=== PATIENT | female | born 1980 | race Caucasian/White ===

== ENCOUNTER 2018-08-12 07:15 | Emergency (ER) | payer BC ==
[2018-08-12 07:32] VITALS: BP 132/89
--- NOTE | 2018-08-12 07:49 | UC ---
Skin Complaint HPI - HPI Summary HPI Summary: 37 yo female presents with rash. She tells me that about a week ago she thinks she was bitten by a bug, possibly a tick, to her right posterior upper thigh. Since that time has noticed an enlarging red [place] at the area that is mildly itchy. Yesterday she noticed a red circular rash on her left arm and right upper arm. She mentions that she has been bitten by multiple ticks in the last few months, but has never noticed a rash or had any symptoms. Denies fever, chills, body aches, joint pain, fatigue. - History of Current Complaint Chief Complaint: UCSkin Time Seen by Provider: 08/12/18 07:49 Stated Complaint: TICK BITE RT THIGH Hx Obtained From: Patient Onset/Duration: Gradual Onset Current Severity: None Pain Intensity: 0 - Allergy/Home Medications Allergies/Adverse Reactions: Allergies Allergy/AdvReac Type Severity Reaction Status Date / Time No Known Allergies Allergy Verified 08/12/18 07:32 Home Medications: Home Medications Ethynodiol D-Ethinyl Estradiol [Kelnor ] 1 tab PO 08/12/18 [History] Fluvoxamine (NF) [Luvox (NF)] 100 mg PO 08/12/18 [History] Levothyroxine Sodium [Synthroid] 50 mcg PO 08/12/18 [History] lamoTRIgine [Lamictal] 100 mg PO 08/12/18 [History] PMH/Surg Hx/FS Hx/Imm Hx Endocrine History: Hypothyroidism Psychological History: Bipolar Disorder - Surgical History Surgical History: None - Family History Known Family History: Positive: None - Social History Occupation: Employed Full-time Lives: With Family Alcohol Use: Rare Substance Use Type: None Smoking Status (MU): Never Smoked Tobacco Review of Systems All Other Systems Reviewed And Are Negative: Yes Constitutional: Positive: Negative Skin: Positive: Rash Eyes: Positive: Negative ENT: Positive: Negative Respiratory: Positive: Negative Cardiovascular: Positive: Negative Gastrointestinal: Positive: Negative Neurovascular: Positive: Negative Neurological: Positive: Negative Psychological: Positive: Negative Physical Exam - Summary Physical Exam Summary: GENERAL: NAD. WDWN. No pain distress. SKIN: RIGHT POSTERIOR UPPER THIGH: approx 10.0cm bull's eye rash. No warmth, induration, or streaking. LEFT dorsal forearm 2.5cm oval shaped area of erythema and mild edema with central clearing. RIGHT UPPER ARM: 2.0cm circular erythematous rash with central clearing and mild edema. No open wounds NECK: Supple. Nontender. No lymphadenopathy. CHEST: No accessory muscle use. Breathing comfortably and in no distress. CV: Pulses intact. Cap refill <2seconds NEURO: Alert. PSYCH: Age appropriate behavior. Triage Information Reviewed: Yes Vital Signs: Initial Vital Signs Temp 98.3 F 08/12/18 07:28 Pulse 63 08/12/18 07:28 Resp 18 08/12/18 07:28 BP 132/89 08/12/18 07:28 Pulse Ox 100 08/12/18 07:28 Vital Signs Reviewed: Yes Course/Dx - Course Course Of Treatment: Rashes appear consistent with early disseminated lyme disease. Dx further supported by her history of tick bites over the last few months. Will rx for doxycycline for 3 weeks and have her f/u with her PCP for a recheck - Diagnoses Provider Diagnosis: Lyme disease Discharge - Sign-Out/Discharge Documenting (check all that apply): Patient Departure All imaging exams completed and their final reports reviewed: No Studies - Discharge Plan Condition: Stable Disposition: HOME Prescriptions: DOXYcycline CAP(*) [DOXYcycline 100MG CAP(*)] 100 mg PO BID #[id number] cap Patient Education Materials: Doxycycline (By mouth), Lyme Disease (ED), Tick Bite (ED) Referrals: Janie Louis MD [Primary Care Provider] - Additional Instructions: If you develop a fever, shortness of breath, chest pain, new or worsening symptoms - please call your PCP or go to the ED immediately. - Billing Disposition and Condition Condition: STABLE Disposition: Home
== END 2018-08-12 08:08 | disposition home or self-care (01) ==
LOC: UCEAST 07:15
DX: A69.20 Lyme disease, unspecified (principal); E03.9 Hypothyroidism, unspecified; F31.9 Bipolar disorder, unspecified
CPT/HCPCS: 99212; G0463